=== PATIENT | male | born 1950 | race Two or more races ===

== ENCOUNTER 2021-11-22 06:54 | Inpatient (IN) | payer OTHER ==
[2021-11-22] VITALS (8 sets, daily range): BP systolic 103–161; BP diastolic 51–87
[~2021-11-22] VITALS: Ht 190.5 cm; Wt 97.1 kg
[2021-11-22] MEDS ORDERED: ATEN1TAB42 MT (08:08)
[2021-11-22] MEDS ORDERED: MONT10TA32 PO (08:09)
[2021-11-22] MEDS ORDERED: HYDR-459 MT (08:11)
[2021-11-22] MEDS ORDERED: ASPI-1497 PO (08:12)
[2021-11-22] MEDS ORDERED: CALC-1249 PO (08:13)
[2021-11-22] MEDS ORDERED: HEPARIN SODIUM 1,000 UNIT/1ML VIAL IV ONE (10:40)
[2021-11-22] MEDS ORDERED: LIDOCAINE HCL 1% 20ML VIAL (Pyxis) INJ ONE (10:44)
[2021-11-22] MEDS ORDERED: IODIXANOL 320MG/ML 100 ML BOTTLE IV ONE (10:45)
[2021-11-22] MEDS ORDERED: FENTANYL CITRATE/PF 50MCG/ML 2ML VIAL ONE (10:46)
[2021-11-22] MEDS ORDERED: MIDAZOLAM HCL 2 MG/2 ML VIAL ONE (10:47)
[2021-11-22] MEDS ORDERED: IOHEXOL-300 100 ML BOTTLE ONE (11:14)
[2021-11-22] MEDS ORDERED: ASPIRIN 325MG TABLET ONE (11:36)
[2021-11-22] MEDS ORDERED: CLOPIDOGREL 75MG TABLET ONE (11:36)
[2021-11-22] MEDS ORDERED: ATROPINE SULFATE 1MG/10ML SYR IV PRN (11:45)
[2021-11-22] MEDS ORDERED: ACETAMINOPHEN 325MG TABLET PO PRN (11:45)
[2021-11-22] MEDS ORDERED: ONDANSETRON HCL 4MG/2ML INJ IV PRN (11:45)
[2021-11-22] MEDS: ATENOLOL 50 MG TABLET PO SCH (15:00)
[2021-11-22] MEDS ORDERED: ATORVASTATIN CALCIUM 20MG TABLET PO SCH (21:00)
[2021-11-23] VITALS (7 sets, daily range): BP systolic 111–139; BP diastolic 56–74
[2021-11-23 06:49] LABS: BASOPHILS % 0.8 % (0.0-2.0); EOSINOPHILS % 2.9 % (0.0-5.0); HEMATOCRIT. 43.7 % (42.0-52.0); HEMOGLOBIN. 14.7 g/dL (14.0-18.0); MEAN CORPUSCULAR HEMOGLOBIN 30.8 pg (28.0-32.0); MEAN CORPUSCULAR VOLUME 91.7 fL (80.0-94.0); MEAN PLATELET VOLUME 8.2 fl (7.4-10.4); MONOCYTES % 8.8 % (2.0-8.0); NEUTROPHILS % 58.5 % (40.0-76.0); PLATELET 225 x1000/uL (130-400); RED BLOOD CELL COUNT 4.76 mill/uL (4.7-6.1)
[2021-11-23 07:03] LABS: CHLORIDE 101 mEq/L (98-107)
[2021-11-23] MEDS: ATENOLOL 50 MG TABLET PO SCH (09:00)
[2021-11-23] MEDS ORDERED: CLOPIDOGREL 75MG TABLET PO SCH (09:00)
[2021-11-23] MEDS ORDERED: ASPIRIN 325MG TABLET PO SCH (09:00)
[2021-11-23] MEDS ORDERED: CLOP-31 PO (10:34)
== END 2021-11-23 11:40 | disposition home or self-care (01) | DRG 254 ==
LOC: ANGIO 06:54 → 5EST 06:55
PROVIDERS: ADMIT Specialist; ATTEND Specialist
PROC: 047K3DZ Dilation of Right Femoral Artery with Intraluminal Device, Percutaneous Approach (ICD-10-PCS; principal; 2021-11-22)
PROC: B41F1ZZ Fluoroscopy of Right Lower Extremity Arteries using Low Osmolar Contrast (ICD-10-PCS; 2021-11-22)
DX: I70.201 Unspecified atherosclerosis of native arteries of extremities, right leg (principal); I25.10 Atherosclerotic heart disease of native coronary artery without angina pectoris; E78.5 Hyperlipidemia, unspecified; I10 Essential (primary) hypertension; Z20.822 Contact with and (suspected) exposure to COVID-19; N40.0 Benign prostatic hyperplasia without lower urinary tract symptoms; M19.90 Unspecified osteoarthritis, unspecified site; Z87.891 Personal history of nicotine dependence
CPT/HCPCS: 36415; 37226; 75710; 80048; 83735; 85025; 85347; 87426; C1725; C1760; C1769; C1876; C1893; C1894; J1644; J2250; J3010; J3490; Q9967

== ENCOUNTER 2021-11-25 17:39 | Emergency (ER) | payer MEDICARE, OTHER ==
[~2021-11-25] VITALS: Ht 190.5 cm; Wt 100.0 kg
[~2021-11-25 17:39] MED LIST: ASPI-1497 PO; CALC-1249 PO; CLOP-31 PO; MONT10TA32 PO
[2021-11-25 18:19] VITALS: BP 135/83
== END 2021-11-25 18:19 | disposition home or self-care (01) ==
LOC: ER 17:39
DX: S31.114D Laceration without foreign body of abdominal wall, left lower quadrant without penetration into peritoneal cavity, subsequent encounter (principal); X58.XXXD Exposure to other specified factors, subsequent encounter; Z98.890 Other specified postprocedural states; Z79.899 Other long term (current) drug therapy
CPT/HCPCS: 93922; 99284